=== PATIENT | female | born 1995 | race American Indian/Alaskan Native ===

== ENCOUNTER 2018-01-29 08:19 | Inpatient (IN) | payer OTHER ==
[~2018-01-29] VITALS: Ht 154.9 cm; Wt 2.7 kg
[2018-01-29] MEDS ORDERED: PRENATAL TABLE1 EACH PO (09:26)
[2018-01-29] MEDS ORDERED: FERRO-TIME325 MG PO (09:27)
[2018-02-01] MEDS ORDERED: PERCOCET 5-3251 EACH PO (13:38)
[2018-02-01] MEDS ORDERED: SURFAK240 M1 PO (13:38)
== END 2018-02-01 19:41 | DRG 766 ==
LOC: LDR 08:19 → OB/GYN 08:19
PROVIDERS: Specialist
PROC: 0UL70ZZ Occlusion of Bilateral Fallopian Tubes, Open Approach (ICD-10-PCS; 2018-01-29)
PROC: 10907ZC Drainage of Amniotic Fluid, Therapeutic from Products of Conception, Via Natural or Artificial Opening (ICD-10-PCS; 2018-01-29)
PROC: 4A033R1 Measurement of Arterial Saturation, Peripheral, Percutaneous Approach (ICD-10-PCS; 2018-01-29)
PROC: 4A1HXCZ Monitoring of Products of Conception, Cardiac Rate, External Approach (ICD-10-PCS; 2018-01-29)
PROC: 10D00Z1 Extraction of Products of Conception, Low, Open Approach (ICD-10-PCS; principal; 2018-01-29 18:00)
DX: O99.824 Streptococcus B carrier state complicating childbirth (principal); Z3A.38 38 weeks gestation of pregnancy; Z37.0 Single live birth; Z30.2 Encounter for sterilization